=== PATIENT | male | born 1960 | race African-American/Black ===

== ENCOUNTER 2020-03-12 13:04 | Emergency (ER) | payer SELFPAY ==
--- NOTE | 2020-03-12 13:24 | ER Document Report ---
ED Medical Screen (RME) - General Chief Complaint: High Blood Pressure Stated Complaint: HEADACHE Time Seen by Provider: 03/12/20 13:16 - HPI Notes: Patient is 59-year-old male who presents with high blood pressure and headache. Patient states he was scheduled to have a tooth pulled on 03/06/2020 but was found to have high blood pressure and was about to follow-up with his primary care. He saw his primary care provider on 03/08/2020 and was started on lisinopril 20 mg once daily. He has been taking the medication as prescribed but feels it is not working. He began to have a mild right frontal headache, blurred vision, and left finger numbness. He states all the symptoms has resolved but he is concerned as his blood pressure remains high. He denies any medical history. - Related Data Allergies/Adverse Reactions: No Known Allergies Allergy (Verified 03/12/20 13:16) Physical Exam - Vital signs Vitals: Temp Pulse Resp BP Pulse Ox 98.7 F 95 20 198/100 H 98 03/12/20 13:14 03/12/20 13:14 03/12/20 13:14 03/12/20 13:14 03/12/20 13:14 - Respiratory Respiratory status: No respiratory distress Breath sounds: Normal - Cardiovascular Rhythm: Regular Heart sounds: Normal auscultation Course - Re-evaluation Re-evalutation: I have greeted and performed a rapid initial assessment of this patient. A comprehensive ED assessment and evaluation of the patient, analysis of test results and completion of medical decision making process will be conducted by an additional ED providers. - Vital Signs Vital signs: Temp Pulse Resp BP Pulse Ox 98.7 F 95 20 198/100 H 98 03/12/20 13:14 03/12/20 13:14 03/12/20 13:14 03/12/20 13:14 03/12/20 13:14
[2020-03-12 13:40] LABS: ABSOLUTE LYMPHOCYTES (AUTO) 0.7 10^3/uL (0.5-4.7); ABSOLUTE MONOCYTES (AUTO) 0.5 10^3/uL (0.1-1.4); ABSOLUTE NEUT (AUTO) 4.1 10^3/uL (1.7-8.2); BASOPHILS % (AUTO) 0.5 % (0-2); EOSINOPHILS % (AUTO) 0.6 % (0-6); HEMATOCRIT 44.1 % (37.9-51.0); HEMOGLOBIN 14.4 g/dL (13.5-17.0); LYMPHOCYTES % (AUTO) 13.2 % (13-45); MEAN CORPUSCULAR HEMOGLOBIN 26.8 pg (27.0-33.4); MEAN CORPUSCULAR HGB CONC 32.6 g/dL (32.0-36.0); MEAN CORPUSCULAR VOLUME 82 fl (80-97); MONOCYTES % (AUTO) 9.4 % (3-13); PLATELET COUNT 170 10^3/uL (150-450); RED BLOOD COUNT 5.36 10^6/uL (4.35-5.55); RED CELL DISTRIBUTION WIDTH 14.5 % (11.5-14.0); SEGMENTED NEUTROPHILS % (AUTO) 76.3 % (42-78); TOTAL CELLS COUNTED % (AUTO) 100 %; WHITE BLOOD COUNT 5.3 10^3/uL (4.0-10.5)
[2020-03-12 13:49] LABS: INTERNATIONAL RATION (INR) 1.01; PROTHROMBIN TIME 13.5 SEC (11.4-15.4)
[2020-03-12 13:50] LABS: PARTIAL THROMBOPLASTIN TIME 34.7 SEC (23.5-35.8)
--- NOTE | 2020-03-12 13:51 | RADIOLOGY REPORT (SQ) ---
EXAM DESCRIPTION: CT HEAD WITHOUT IMAGES COMPLETED DATE/TIME: 03/12/2020 1:39 pm REASON FOR STUDY: headache, high BP COMPARISON: None. TECHNIQUE: Axial images acquired through the brain without intravenous contrast. Images reviewed wi th bone, brain and subdural windows. Additional sagittal and coronal reconstructions were generated. Images stored on PACS. All CT scanners at this facility use dose modulation, iterative reconstruction, and/or weight based d osing when appropriate to reduce radiation dose to as low as reasonably achievable (ALARA). [facility]: Dose Right [facility]: CareDose [facility]: Dose Right [facility]: Teradose 4D [facility]: [employer] RADIATION DOSE: CT Rad equipment meets quality standard of care and radiation dose reduction techniq ues were employed. CTDIvol: 48.9 mGy. DLP: 960 mGy-cm. LIMITATIONS: None. FINDINGS: The round area of low attenuation in the left basal ganglia (image 21 of series 2) could r epresent a chronic lacunar infarct or a prominent Virchow Hector space. There is no acute intracranial hemorrhage, vascular territorial infarct, extra-axial fluid collection , mass effect or midline shift. The dangelo-white matter differentiation is preserved. The caliber of the ventricles is concordant with the degree of sulcation. There is no effacement of the cerebral garcia lci or basal subarachnoid cisterns. The orbits and globes are intact. The paranasal sinuses and the mastoid air cells are clear. There is no fracture of the calvarium. IMPRESSION: No acute intracranial abnormality. EVIDENCE OF ACUTE STROKE: NO. COMMENT: Quality ID # [id number]: Final reports with documentation of one or more dose reduction techniques (e.g., Automated exposure control, adjustment of the mA and/or kV according to patient size, use of iterative reconstruction technique) TECHNICAL DOCUMENTATION: JOB ID: [id number] 2010 [employer]- All Rights Reserved Reading location - IP/workstation name: [email or web address]
[2020-03-12 14:05] LABS: ALBUMIN 4.8 g/dL (3.5-5.0); ALKALINE PHOSPHATASE 76 U/L (38-126); ANION GAP 11 (5-19); ASPARTATE AMINO TRANSFERASE 35 U/L (17-59); BILIRUBIN,DIRECT 0.1 mg/dL (0.0-0.4); BILIRUBIN,TOTAL 2.2 mg/dL (0.2-1.3); BLOOD UREA NITROGEN 17 mg/dL (7-20); CALCIUM 10.1 mg/dL (8.4-10.2); CARBON DIOXIDE 27 mmol/L (22-30); CHLORIDE 100 mmol/L (98-107); GLUCOSE 108 mg/dL (75-110); POTASSIUM 4.2 mmol/L (3.6-5.0); TOTAL PROTEIN 7.9 g/dL (6.3-8.2)
[2020-03-12] MEDS ORDERED: CLONIDINE HCL 0.1 MG TABLET PO ONE ×2 (16:09→17:48)
--- NOTE | 2020-03-12 16:52 | RADIOLOGY REPORT (SQ) ---
EXAM DESCRIPTION: CHEST SINGLE VIEW IMAGES COMPLETED DATE/TIME: 03/12/2020 4:37 pm REASON FOR STUDY: htn COMPARISON: None. EXAM PARAMETERS: NUMBER OF VIEWS: One view. TECHNIQUE: An AP view of the chest was obtained. RADIATION DOSE: NA LIMITATIONS: None. FINDINGS: LUNGS AND PLEURA: No consolidation, pleural effusion or pneumothorax. MEDIASTINUM AND HILAR STRUCTURES: No mediastinal or hilar contour abnormality. HEART AND VASCULAR STRUCTURES: The cardiac silhouette and pulmonary vasculature are within normal esteban its. BONES: No acute findings. HARDWARE: None in the chest. OTHER: No other finding. IMPRESSION: No acute cardiopulmonary process. TECHNICAL DOCUMENTATION: JOB ID: [id number] 2010 [employer]- All Rights Reserved Reading location - IP/workstation name: [email or web address]
--- NOTE | 2020-03-12 19:14 | EKG REPORT ---
SEVERITY:- ABNORMAL ECG - SINUS RHYTHM PROBABLE LEFT ATRIAL ABNORMALITY INCOMPLETE RIGHT BUNDLE BRANCH BLOCK LVH BY VOLTAGE : Confirmed by: Ophelia Marrufo MD 12-Mar-2020 19:13:32
--- NOTE | 2020-03-12 19:51 | ER Document Report ---
ED Blood Pressure Problem - General Chief Complaint: High Blood Pressure Stated Complaint: HEADACHE Time Seen by Provider: 03/12/20 13:16 Primary Care Provider: MICKY,DEJAN [Primary Care Provider] - Follow up as needed - HPI Notes: Chief Complaint: HTN Historian: History obtained from patient HPI: This is a 59yo BM c/o elevated BP over the past few days. Pt was suppose to have a tooth pulled and dentist would not perform procedure due to HTN. PT went to urgent care provider and he was started on lisinopril 20 mg daily for elevated blood pressure. Patient says he has been compliant with this for the past 3 to 4 days. Today he had a mild dull headache and while at work he noticed he had some intermittent blurry vision as well as some tingling to his the tip of his left index finger so he decided come to the ER for evaluation. Patient has not been treated for hypertension prior to this week. Although, he says he does have a strong family history of hypertension. He denies chest pain, shortness of breath, abdominal pain, nausea vomiting, vision loss, confusion, and aphasia, dizziness, etc. no history of cardiac issues. Patient says at this time in the ER he is asymptomatic, he denies BRYANT or any other symptoms at this time. ROS: Constitutional: no fevers. HEENT: BRYANT, blurry vision- both resolved CV: no chest pain or palpitations. Resp: no cough or SOB. GI: no abdominal pain, or n/v/d. : no dysuria, hematuria, or incont. MSK: no back pain, no joint swelling/redness. Skin: no rashes or itching. Neuro: no seizures, weakness, numbness, or confusion. Hematological: no ecchymosis or easy bleeding. Endocrine: no polyuria/polydipsia, no heat/cold intolerance. Psych: no SI/HI, AH/VH or memory loss. PMHx: Reviewed and agree as charted by RN. PSHx: Reviewed and agree as charted by RN. SOCHx: Reviewed and agree as charted by RN. FHX: No significant familial comorbid conditions directly related to patient complaint Current Medications: Reviewed and agree with the patient medications as charted by the RN. Allergies: Reviewed and agree with the listed allergies as charted by the RN Physical Exam: Vitals: Reviewed in chart as documented by RN. General: Alert and in NAD. Head: Normocephalic; atraumatic Eyes: PERRLA, Conjunctivae clear sclerae non-icteric bilat. ENT: no soft palate swelling or uvular deviation Neck: trachea midline, no unilateral swelling/tenderness/lymphadenopathy. no jvd CV: RRR, no M/R/G; symmetric distal pulses Resp: respirations even and unlabored, CTA bilat. GI: abd soft and nondistended. NTTP. normal BS. no masses/HSM. no CVAT bilat MSK: FROM of all extremities. No midline CTL spine tenderness/deformity Skin: warm, moist, good turgor. no rash/lesions Neuro: Alert and oriented X 4. following CN 2-12 intact. no unilateral weakness/numbness Psych: No SI/HI or AH/VH. ED Results: Medical Decision-Making: Differential includes essential hypertension, secondary hypertension, hypertensive urgency, hypertensive emergency, ACSunlikely, electrolyte abnormality, acute intracranial process, metabolic abnormality, infectious process, etc. plan- CT head and basic labs ordered by triage provider. I will add ECG, troponin, UA, CXR to further assess for any evidence of end organ dysfxn. pt bp is around 180/110 in the ED. labs reviewed- total bili 2.2- pt denies etoh use or hx of hepatitis. no abdom pain or n/v. trop negative ECG- NSR- rate- CXR- negative CT head- chronic microvasc changes w/ possible tiny remote infaract. no acute CVA. pt given clonidine 0.1mg PO. BP remained 182/105 1 hr after meds. second dose of clonidine 0.1mg given. BP still remains at 180/105. PT continues to be asymptomatic. discussed w/ dr worley. we will not continue to medicate pt in ED due to concern for delayed onset of hypotension later. Will d/c pt w/ Hctz 25mg PO qday to be added to his lisinopril 20mg qday. he is to f/u w/ his pcp in the next 2-3 days for recheck and further management of bp. return factors discussed. pt agrees w/ plan of care. - Related Data Allergies/Adverse Reactions: No Known Allergies Allergy (Verified 03/12/20 13:16) Past Medical History - General Information source: Patient - Social History Smoking Status: Unknown if Ever Smoked Family History: Reviewed & Not Pertinent - Medical History Medical History: Negative - Past Medical History Cardiac Medical History: Reports: Hx Hypertension Physical Exam - Vital signs Vitals: Temp Pulse Resp BP Pulse Ox 98.7 F 95 20 198/100 H 98 03/12/20 13:14 03/12/20 13:14 03/12/20 13:14 03/12/20 13:14 03/12/20 13:14 Course - Vital Signs Vital signs: Temp Pulse Resp BP Pulse Ox 78.3 F L 84 15 168/98 H 100 03/12/20 19:56 03/12/20 19:56 03/12/20 19:56 03/12/20 19:56 03/12/20 19:56 - Laboratory Results Result Diagrams: 03/12/20 13:24 03/12/20 13:24 Laboratory Results Interpreted: 03/12/20 03/12/20 13:24 13:24 MCH 26.8 L RDW 14.5 H Total Bilirubin 2.2 H Critical Laboratory Results Reviewed: No Critical Results - Radiology Results Critical Radiology Results Reviewed: No Critical Results - EKG Interpretation by Ms EKG shows normal: Sinus rhythm Rate: Normal Rhythm: NSR - NSR- rate 74. normal axis. incomplete RBBB, LVH. pr 188. qtc-475. NSST changes. no prior to compare Discharge - Discharge Clinical Impression: Asymptomatic hypertensive urgency Condition: Stable Disposition: HOME, SELF-CARE Instructions: High Blood Pressure ([facility]), High Blood Pressure, Requiring Treatment ([facility]), Hydrochlorothiazide ([facility]) Additional Instructions: follow up with your primary care doctor as soon as possible to further monitor and treat your blood pressure. take blood pressure medications as prescribed. return to the ER if your condition worsens- especially for chest pain, shortness of breath, confusion, severe headaches, vision loss, or other stroke signs. Prescriptions: Hydrochlorothiazide [Hydrodiuril 25 mg Tablet] 25 mg PO QAM #30 tablet Referrals: LOCALMD,NO [Primary Care Provider] - Follow up as needed
[2020-03-12 19:57] VITALS: BP 168/98
== END 2020-03-12 19:56 | disposition home or self-care (01) ==
LOC: ER 13:04
DX: I16.0 Hypertensive urgency (principal); I10 Essential (primary) hypertension; R51.9 Headache, unspecified; Z82.49 Family history of ischemic heart disease and other diseases of the circulatory system
CPT/HCPCS: 36415; 70450; 71045; 80053; 84484; 85025; 85610; 85730; 93005; 93010; 99285